=== PATIENT | female | born 1935 | race Caucasian/White ===

== ENCOUNTER 2019-11-20 22:12 | Inpatient (IN) | payer OTHER ==
[~2019-11-20] VITALS: Ht 162.6 cm; Wt 84.9 kg
[2019-11-20] MEDS ORDERED: D5W/SOD CHLO 0.9% 1,000 ML IV ONE (23:30)
[2019-11-20 23:54] LABS: Basophils # (auto) 0.1 10 ^3/uL (0-0.2); Basophils % (auto) 0.4 % (0.0-2.0); Eosinophils # (auto) 0.1 10 ^3/uL (0-0.8); Eosinophils % (auto) 0.9 % (0.0-7.0); Hematocrit 31.2 % (36.0-46.0); Hemoglobin 10.1 g/dL (12.2-16.2); Lymphocytes # (auto) 1.2 10 ^3/uL (0.4-5.4); Lymphocytes % (auto) 7.9 % (10.0-50.0); Mean Corpuscular Hemoglobin 29.8 pg (28.0-32.0); Mean Corpuscular Hgb Conc. 32.3 g/dL (32.0-36.0); Mean Corpuscular Volume 92.2 fL (80.0-100.0); Monocytes # (auto) 1.1 10 ^3/uL (0-1.3); Monocytes % (auto) 7.4 % (0.0-12.0); Neutrophils # (auto) 12.6 10 ^3/uL (1.6-8.6); Neutrophils % (auto) 83.4 % (37.0-80.0); Platelet Count (auto) 186 10^3/uL (140-450); Red Blood Cells 3.39 10^6/uL (4.0-5.20); Red Cell Distribution Width 14.9 % (11.8-14.3); White Blood Cell 15.1 10^3/uL (4.4-10.8)
[2019-11-21] VITALS (7 sets, daily range): BP systolic 96–153; BP diastolic 42–62
[2019-11-21] MEDS ORDERED: ONDANSETRON HCL 4 MG/2 ML VIAL IV ONE
[2019-11-21] MEDS ORDERED: MORPHINE SULFATE 4 MG/ML SYR/VIAL IV ONE
[2019-11-21 00:07] LABS: Partial Thromboplastin Time 23.8 sec (23.64-32.05)
[2019-11-21 00:14] LABS: Albumin 3.4 g/dL (3.4-5.0); Potassium 4.3 mmol/L (3.5-5.1)
[2019-11-21 00:17] LABS: BUN/Creatinine Ratio 30.8
[2019-11-21 00:20] LABS: Bilirubin, Total 0.2 mg/dL (0.2-1.0); Total Protein 6.6 g/dL (6.4-8.2)
[2019-11-21 00:41] LABS: Urine Bacteria FEW /hpf (None Seen); Urine Blood Negative /uL (Negative); Urine Hyaline Cast FEW /lpf (0 - 2); Urine Mucus FEW (None Seen); Urine Specific Gravity 1.013 (1.001-1.035)
[2019-11-21 00:42] LABS: Urine WBC 4 /hpf (0 - 5)
[2019-11-21] MEDS ORDERED: ACETAMINOPHEN 325 MG TAB PO PRN (00:45)
[2019-11-21] MEDS ORDERED: ONDANSETRON HCL 4 MG/2 ML VIAL IV PRN (00:45)
[2019-11-21] MEDS ORDERED: TEMAZEPAM 15 MG CAP PO PRN (00:45)
[2019-11-21] MEDS ORDERED: TIOTCAP IN (03:04)
[2019-11-21] MEDS ORDERED: HYDR25TA4 PO (03:04)
[2019-11-21] MEDS ORDERED: LOVA20TA4 PO (03:04)
[2019-11-21] MEDS ORDERED: AMLO5TAB15 PO (03:04)
[2019-11-21] MEDS ORDERED: LEVO88TA4 PO (03:04)
[2019-11-21] MEDS ORDERED: CLON1TAB10 PO (03:04)
[2019-11-21] MEDS ORDERED: RANI75SY PO (03:04)
[2019-11-21] MEDS ORDERED: ASPI325T4 PO (03:04)
[2019-11-21] MEDS: MORPHINE SULFATE 4 MG/ML SYR/VIAL IV PRN ×2 (04:17→20:03)
[2019-11-21] MEDS: LEVOTHYROXINE SODIUM 88 MCG TAB PO SCH (06:39)
[2019-11-21] MEDS: HCTZ 25 MG TAB PO SCH (10:00)
[2019-11-21] MEDS: amLODIPine BESYLATE 5 MG TAB PO SCH (10:00)
[2019-11-21] MEDS: FAMOTIDINE 20 MG TAB PO SCH (10:40)
[2019-11-21] MEDS: HYDROcodone-ACET 5/325MG TAB PO PRN (10:40)
[2019-11-21] MEDS: cefTRIAXone 1GM/50ML D5W 50 ML IV SCH (10:41)
[2019-11-22] MEDS: MORPHINE SULFATE 4 MG/ML SYR/VIAL IV PRN ×3 (04:43→18:35)
[2019-11-22 05:00] VITALS: BP 110/55
[2019-11-22 05:48] LABS: Basophils # (auto) 0 10 ^3/uL (0-0.2); Basophils % (auto) 0.5 % (0.0-2.0); Eosinophils # (auto) 0.1 10 ^3/uL (0-0.8); Hematocrit 23.7 % (36.0-46.0); Hemoglobin 7.9 g/dL (12.2-16.2); Lymphocytes # (auto) 0.8 10 ^3/uL (0.4-5.4); Lymphocytes % (auto) 11.5 % (10.0-50.0); Mean Corpuscular Hemoglobin 30.5 pg (28.0-32.0); Mean Corpuscular Hgb Conc. 33.4 g/dL (32.0-36.0); Mean Corpuscular Volume 91.3 fL (80.0-100.0); Monocytes % (auto) 14.2 % (0.0-12.0); Neutrophils % (auto) 71.8 % (37.0-80.0); Platelet Count (auto) 123 10^3/uL (140-450); Red Blood Cells 2.59 10^6/uL (4.0-5.20); Red Cell Distribution Width 14.9 % (11.8-14.3); White Blood Cell 6.9 10^3/uL (4.4-10.8)
[2019-11-22 06:00] LABS: BUN/Creatinine Ratio 32.7; Calcium 8.3 mg/dL (8.5-10.1)
[2019-11-22] MEDS: LEVOTHYROXINE SODIUM 88 MCG TAB PO SCH (06:11)
[2019-11-22 08:25] LABS: Basophils # (auto) 0 10 ^3/uL (0-0.2); Basophils % (auto) 0.4 % (0.0-2.0); Eosinophils # (auto) 0.1 10 ^3/uL (0-0.8); Eosinophils % (auto) 1.1 % (0.0-7.0); Hematocrit 24.7 % (36.0-46.0); Hemoglobin 8.2 g/dL (12.2-16.2); Lymphocytes # (auto) 0.8 10 ^3/uL (0.4-5.4); Mean Corpuscular Hemoglobin 30.6 pg (28.0-32.0); Mean Corpuscular Hgb Conc. 33.3 g/dL (32.0-36.0); Mean Corpuscular Volume 91.8 fL (80.0-100.0); Monocytes % (auto) 13.7 % (0.0-12.0); Neutrophils # (auto) 5.6 10 ^3/uL (1.6-8.6); Neutrophils % (auto) 73.8 % (37.0-80.0); Platelet Count (auto) 123 10^3/uL (140-450); Red Blood Cells 2.69 10^6/uL (4.0-5.20); Red Cell Distribution Width 14.9 % (11.8-14.3); White Blood Cell 7.5 10^3/uL (4.4-10.8)
[2019-11-22 09:00] VITALS: BP 135/71
[2019-11-22] MEDS: cefTRIAXone 1GM/50ML D5W 50 ML IV SCH (10:28)
[2019-11-22] MEDS: amLODIPine BESYLATE 5 MG TAB PO SCH (10:29)
[2019-11-22] MEDS: FAMOTIDINE 20 MG TAB PO SCH (10:29)
[2019-11-22] MEDS: HCTZ 25 MG TAB PO SCH (10:29)
[2019-11-22] MEDS ORDERED: ceFAZolin 1GM/50ML 50 ML IV ONE (10:45)
[2019-11-22] MEDS ORDERED: AMLO2.5T7 PO (11:01)
[2019-11-22 13:00] VITALS: BP 127/65
[2019-11-22] MEDS ORDERED: ENOXAPARIN SOD 40 MG/0.4 ML SYRINGE SC ONE (14:00)
[2019-11-22 17:00] VITALS: BP 144/65
[2019-11-22 22:00] VITALS: BP 120/68
[2019-11-23 05:00] VITALS: BP 124/59
[2019-11-23 05:57] LABS: Basophils # (auto) 0 10 ^3/uL (0-0.2); Basophils % (auto) 0.5 % (0.0-2.0); Hematocrit 22.3 % (36.0-46.0); Hemoglobin 7.6 g/dL (12.2-16.2); Mean Corpuscular Hgb Conc. 33.9 g/dL (32.0-36.0); Monocytes # (auto) 1.3 10 ^3/uL (0-1.3); Platelet Count (auto) 117 10^3/uL (140-450)
[2019-11-23 06:00] LABS: Eosinophils # (auto) 0.1 10 ^3/uL (0-0.8); Eosinophils % (auto) 0.8 % (0.0-7.0); Lymphocytes % (auto) 11.9 % (10.0-50.0); Mean Corpuscular Hemoglobin 30.9 pg (28.0-32.0); Mean Corpuscular Volume 91.2 fL (80.0-100.0); Monocytes % (auto) 15.1 % (0.0-12.0); Neutrophils # (auto) 6.1 10 ^3/uL (1.6-8.6); Neutrophils % (auto) 71.7 % (37.0-80.0); Red Blood Cells 2.45 10^6/uL (4.0-5.20); Red Cell Distribution Width 14.8 % (11.8-14.3); White Blood Cell 8.5 10^3/uL (4.4-10.8)
[2019-11-23] MEDS: LEVOTHYROXINE SODIUM 88 MCG TAB PO SCH (06:01)
[2019-11-23 06:11] LABS: BUN/Creatinine Ratio 27.5; Potassium 4.2 mmol/L (3.5-5.1)
[2019-11-23] MEDS: MORPHINE SULFATE 4 MG/ML SYR/VIAL IV PRN ×2 (06:40→17:08)
[2019-11-23 08:40] VITALS: BP 141/76
[2019-11-23 09:00] VITALS: BP 115/58
[2019-11-23] MEDS ORDERED: ceFAZolin 1GM/50ML 50 ML IV ONE (09:21)
[2019-11-23] MEDS ORDERED: MIDAZOLAM HCL 1MG/1ML-2 ML VIAL ONE ×2 (09:34→10:28)
[2019-11-23] MEDS ORDERED: fentaNYL CITRATE 100 MCG/2 ML VL ONE (09:34)
[2019-11-23] MEDS ORDERED: MEPERIDINE HCL (25 MG/ML) 1ML VIAL ONE (09:34)
[2019-11-23] MEDS ORDERED: TETRACAINE 1% INJ 2 ML VIAL IJ ONE (09:36)
[2019-11-23] MEDS ORDERED: ENOXAPARIN SOD 40 MG/0.4 ML SYRINGE SC SCH (10:00)
[2019-11-23] MEDS ORDERED: HCTZ 25 MG TAB PO SCH (10:00)
[2019-11-23] MEDS: amLODIPine BESYLATE 5 MG TAB PO SCH (10:00)
[2019-11-23] MEDS ORDERED: DexAMETHasone SOD PHOS 10MG/1ML VIAL INJ ONE (10:11)
[2019-11-23] MEDS ORDERED: PROPOFOL 10 MG/ML 20 ML IV ONE (10:11)
[2019-11-23] MEDS ORDERED: ONDANSETRON HCL 4 MG/2 ML VIAL IV PRN (11:30)
[2019-11-23] MEDS ORDERED: LABETALOL HCL 5 MG/ML 4ML SYRINGE IV PRN (11:30)
[2019-11-23] MEDS ORDERED: ePHEDrine SULFATE 50 MG/ML AMP IV PRN (11:30)
[2019-11-23] MEDS ORDERED: MORPHINE SULFATE 4 MG/ML SYR/VIAL IV PRN (11:30)
[2019-11-23] MEDS ORDERED: MIDAZOLAM HCL 1MG/1ML-2 ML VIAL IV PRN (11:30)
[2019-11-23] MEDS: cefTRIAXone 1GM/50ML D5W 50 ML IV SCH (13:16)
[2019-11-23] MEDS: FAMOTIDINE 20 MG TAB PO SCH (13:43)
[2019-11-23] MEDS ORDERED: ceFAZolin 1GM/50ML 50 ML IV SCH (14:00)
[2019-11-23 16:53] VITALS: BP 133/74
[2019-11-23] MEDS ORDERED: POLYETHYLENE GLYCOL 17 GM PWDR PO ONE (17:15)
[2019-11-23] MEDS: HYDROcodone-ACET 5/325MG TAB PO PRN (18:49)
[2019-11-23 20:58] VITALS: BP 114/67
[2019-11-24 04:37] VITALS: BP_SYST 102; BP_SYST 130; BP_DIAS 49; BP_DIAS 70
[2019-11-24] MEDS: MORPHINE SULFATE 4 MG/ML SYR/VIAL IV PRN (06:04)
[2019-11-24] MEDS: LEVOTHYROXINE SODIUM 88 MCG TAB PO SCH (06:05)
[2019-11-24 07:20] LABS: Basophils # (auto) 0 10 ^3/uL (0-0.2); Basophils % (auto) 0.1 % (0.0-2.0); Eosinophils # (auto) 0 10 ^3/uL (0-0.8); Hemoglobin 8.1 g/dL (12.2-16.2); Lymphocytes # (auto) 0.8 10 ^3/uL (0.4-5.4); Neutrophils # (auto) 10.7 10 ^3/uL (1.6-8.6); Neutrophils % (auto) 78.9 % (37.0-80.0)
[2019-11-24 07:23] LABS: Eosinophils % (auto) 0.1 % (0.0-7.0); Hematocrit 24.6 % (36.0-46.0); Lymphocytes % (auto) 5.8 % (10.0-50.0); Mean Corpuscular Volume 90.9 fL (80.0-100.0); Monocytes % (auto) 15.1 % (0.0-12.0); Nucleated Red Blood Cells % 0.1 %; Platelet Count (auto) 144 10^3/uL (140-450); Red Cell Distribution Width 14.7 % (11.8-14.3); White Blood Cell 13.5 10^3/uL (4.4-10.8)
[2019-11-24 07:33] LABS: Albumin 2.6 g/dL (3.4-5.0); Calcium 7.9 mg/dL (8.5-10.1); Magnesium 2.3 mg/dL (1.6-2.6); Potassium 4.1 mmol/L (3.5-5.1)
[2019-11-24 07:36] LABS: BUN/Creatinine Ratio 32.4; Bilirubin, Total 0.6 mg/dL (0.2-1.0); Total Protein 6.3 g/dL (6.4-8.2)
[2019-11-24 09:09] VITALS: BP 130/66
[2019-11-24] MEDS: FAMOTIDINE 20 MG TAB PO SCH (09:55)
[2019-11-24] MEDS: cefTRIAXone 1GM/50ML D5W 50 ML IV SCH (09:55)
[2019-11-24] MEDS: amLODIPine BESYLATE 5 MG TAB PO SCH (09:56)
[2019-11-24] MEDS: POLYETHYLENE GLYCOL 17 GM PWDR PO SCH (09:58)
[2019-11-24] MEDS: ENOXAPARIN SOD 30 MG/0.3 ML SYRINGE SC SCH (10:00)
[2019-11-24 13:00] VITALS: BP 124/70
[2019-11-24 16:57] VITALS: BP 105/75
[2019-11-24 21:24] VITALS: BP_SYST 113; BP_SYST 98; BP_DIAS 49; BP_DIAS 65
[2019-11-25 02:50] VITALS: BP 123/59
[2019-11-25 05:39] LABS: Basophils # (auto) 0 10 ^3/uL (0-0.2); Eosinophils # (auto) 0 10 ^3/uL (0-0.8); Eosinophils % (auto) 0.2 % (0.0-7.0); Hemoglobin 7.9 g/dL (12.2-16.2); Neutrophils # (auto) 8.4 10 ^3/uL (1.6-8.6); White Blood Cell 11.2 10^3/uL (4.4-10.8)
[2019-11-25 05:42] LABS: Basophils % (auto) 0.2 % (0.0-2.0); Hematocrit 23.6 % (36.0-46.0); Lymphocytes % (auto) 9.2 % (10.0-50.0); Mean Corpuscular Hemoglobin 30.5 pg (28.0-32.0); Mean Corpuscular Hgb Conc. 33.3 g/dL (32.0-36.0); Mean Corpuscular Volume 91.5 fL (80.0-100.0); Monocytes # (auto) 1.6 10 ^3/uL (0-1.3); Monocytes % (auto) 14.6 % (0.0-12.0); Neutrophils % (auto) 75.8 % (37.0-80.0); Platelet Count (auto) 186 10^3/uL (140-450); Red Blood Cells 2.57 10^6/uL (4.0-5.20); Red Cell Distribution Width 14.7 % (11.8-14.3)
[2019-11-25] MEDS: LEVOTHYROXINE SODIUM 88 MCG TAB PO SCH (06:50)
[2019-11-25 08:00] VITALS: BP 123/61
[2019-11-25 09:00] VITALS: BP 123/61
[2019-11-25] MEDS: POLYETHYLENE GLYCOL 17 GM PWDR PO SCH (10:00)
[2019-11-25] MEDS: cefTRIAXone 1GM/50ML D5W 50 ML IV SCH (10:28)
[2019-11-25] MEDS: ENOXAPARIN SOD 30 MG/0.3 ML SYRINGE SC SCH (10:29)
[2019-11-25] MEDS: FAMOTIDINE 20 MG TAB PO SCH (10:29)
[2019-11-25] MEDS: amLODIPine BESYLATE 5 MG TAB PO SCH (10:29)
[2019-11-25 13:00] VITALS: BP 113/71
[2019-11-25 17:00] VITALS: BP 139/67
[2019-11-25] MEDS ORDERED: FERROUS SULFATE 325 MG TAB PO ONE (17:30)
[2019-11-25 22:25] VITALS: BP 109/62
[2019-11-26] VITALS (10 sets, daily range): BP systolic 103–127; BP diastolic 49–68
[2019-11-26 05:56] LABS: Basophils # (auto) 0 10 ^3/uL (0-0.2); Basophils % (auto) 0.4 % (0.0-2.0); Eosinophils # (auto) 0.2 10 ^3/uL (0-0.8); Eosinophils % (auto) 2.2 % (0.0-7.0); Hematocrit 21.5 % (36.0-46.0); Hemoglobin 7.2 g/dL (12.2-16.2); Lymphocytes # (auto) 1.3 10 ^3/uL (0.4-5.4); Lymphocytes % (auto) 14.7 % (10.0-50.0); Mean Corpuscular Hemoglobin 30.4 pg (28.0-32.0); Mean Corpuscular Hgb Conc. 33.5 g/dL (32.0-36.0); Mean Corpuscular Volume 90.9 fL (80.0-100.0); Monocytes # (auto) 1.5 10 ^3/uL (0-1.3); Monocytes % (auto) 17.9 % (0.0-12.0); Neutrophils # (auto) 5.5 10 ^3/uL (1.6-8.6); Neutrophils % (auto) 64.8 % (37.0-80.0); Platelet Count (auto) 217 10^3/uL (140-450); Red Blood Cells 2.36 10^6/uL (4.0-5.20); Red Cell Distribution Width 14.7 % (11.8-14.3); White Blood Cell 8.6 10^3/uL (4.4-10.8)
[2019-11-26 06:15] LABS: Potassium 4.4 mmol/L (3.5-5.1)
[2019-11-26 06:20] LABS: Calcium 7.9 mg/dL (8.5-10.1)
[2019-11-26] MEDS: LEVOTHYROXINE SODIUM 88 MCG TAB PO SCH (06:59)
[2019-11-26] MEDS: POLYETHYLENE GLYCOL 17 GM PWDR PO SCH (08:57)
[2019-11-26] MEDS: cefTRIAXone 1GM/50ML D5W 50 ML IV SCH (08:57)
[2019-11-26] MEDS: amLODIPine BESYLATE 5 MG TAB PO SCH (08:57)
[2019-11-26] MEDS: FAMOTIDINE 20 MG TAB PO SCH (08:57)
[2019-11-26] MEDS: FERROUS SULFATE 325 MG TAB PO SCH ×2 (10:28→18:00)
[2019-11-26] MEDS: ENOXAPARIN SOD 30 MG/0.3 ML SYRINGE SC SCH (10:29)
[2019-11-26] MEDS: MORPHINE SULFATE 4 MG/ML SYR/VIAL IV PRN (11:09)
[2019-11-26 12:23] LABS: % Iron Saturation 20.2 % (15-50)
[2019-11-26 12:27] LABS: Ferritin 318.3 ng/mL (10-322)
[2019-11-26 12:28] LABS: Folate (Folic Acid) 16.75 ng/mL (5.38-24)
[2019-11-27] VITALS (9 sets, daily range): BP systolic 108–133; BP diastolic 49–72
[2019-11-27 06:19] LABS: Basophils # (auto) 0.1 10 ^3/uL (0-0.2); Basophils % (auto) 0.7 % (0.0-2.0); Eosinophils # (auto) 0.2 10 ^3/uL (0-0.8); Eosinophils % (auto) 3.2 % (0.0-7.0); Hematocrit 29.1 % (36.0-46.0); Hemoglobin 9.9 g/dL (12.2-16.2); Lymphocytes % (auto) 13.1 % (10.0-50.0); Mean Corpuscular Hemoglobin 29.7 pg (28.0-32.0); Mean Corpuscular Hgb Conc. 33.8 g/dL (32.0-36.0); Mean Corpuscular Volume 87.9 fL (80.0-100.0); Monocytes # (auto) 1.3 10 ^3/uL (0-1.3); Monocytes % (auto) 16.9 % (0.0-12.0); Neutrophils % (auto) 66.1 % (37.0-80.0); Platelet Count (auto) 277 10^3/uL (140-450); Red Blood Cells 3.31 10^6/uL (4.0-5.20); Red Cell Distribution Width 17.9 % (11.8-14.3); White Blood Cell 7.6 10^3/uL (4.4-10.8)
[2019-11-27 06:38] LABS: Potassium 5.1 mmol/L (3.5-5.1)
[2019-11-27] MEDS: LEVOTHYROXINE SODIUM 88 MCG TAB PO SCH (06:39)
[2019-11-27 06:56] LABS: Albumin 2.5 g/dL (3.4-5.0); BUN/Creatinine Ratio 43.4; Calcium 8.2 mg/dL (8.5-10.1); Magnesium 2.6 mg/dL (1.6-2.6)
[2019-11-27] MEDS: FAMOTIDINE 20 MG TAB PO SCH (09:00)
[2019-11-27] MEDS: FERROUS SULFATE 325 MG TAB PO SCH ×2 (09:01→18:08)
[2019-11-27] MEDS: amLODIPine BESYLATE 5 MG TAB PO SCH (09:01)
[2019-11-27] MEDS: cefTRIAXone 1GM/50ML D5W 50 ML IV SCH (09:01)
[2019-11-27] MEDS: POLYETHYLENE GLYCOL 17 GM PWDR PO SCH (10:00)
[2019-11-27] MEDS: ENOXAPARIN SOD 40 MG/0.4 ML SYRINGE SC SCH (10:00)
[2019-11-27] MEDS ORDERED: CYANOCOBALAMIN (B-12) 1000 MCG/1 ML VIAL SUBCUT ONE (11:00)
[2019-11-27] MEDS: MORPHINE SULF INJ 2 MG/ML SYRINGE 1ML IV PRN (14:05)
[2019-11-27] MEDS: clonazePAM 0.5 MG TAB PO SCH (22:31)
[2019-11-28 05:00] VITALS: BP 111/69
[2019-11-28] MEDS ORDERED: LEVOTHYROXINE SODIUM 100 MCG TAB PO SCH (07:00)
[2019-11-28] MEDS: FERROUS SULFATE 325 MG TAB PO SCH ×2 (08:29→18:00)
[2019-11-28] MEDS: amLODIPine BESYLATE 5 MG TAB PO SCH (08:29)
[2019-11-28] MEDS: clonazePAM 0.5 MG TAB PO SCH (08:29)
[2019-11-28] MEDS: FAMOTIDINE 20 MG TAB PO SCH (08:29)
[2019-11-28 09:00] VITALS: BP 117/81
[2019-11-28] MEDS: ENOXAPARIN SOD 40 MG/0.4 ML SYRINGE SC SCH (10:00)
[2019-11-28] MEDS: POLYETHYLENE GLYCOL 17 GM PWDR PO SCH (10:00)
[2019-11-28 13:00] VITALS: BP 124/67
[2019-11-28] MEDS: MORPHINE SULF INJ 2 MG/ML SYRINGE 1ML IV PRN (13:34)
[2019-11-28 16:11] VITALS: BP 124/67
[2019-11-28 16:47] VITALS: BP 105/67
== END 2019-11-28 21:00 | DRG 481 ==
LOC: EDBD 22:12 → ER 22:19 → WEST WING 22:20 → OVERFLOW 22:20 → UNDOADMIN 22:20
PROVIDERS: ADMIT Nurse Practitioner; ATTEND Internal Medicine
PROC: 30233N1 Transfusion of Nonautologous Red Blood Cells into Peripheral Vein, Percutaneous Approach (ICD-10-PCS; 2019-11-23)
PROC: 8E0Y3EZ Fluorescence Guided Procedure of Lower Extremity, Percutaneous Approach (ICD-10-PCS; 2019-11-23)
PROC: 0QS636Z Reposition Right Upper Femur with Intramedullary Internal Fixation Device, Percutaneous Approach (ICD-10-PCS; principal; 2019-11-23 09:45)
DX: S72.141A Displaced intertrochanteric fracture of right femur, initial encounter for closed fracture (principal); N39.0 Urinary tract infection, site not specified; J96.10 Chronic respiratory failure, unspecified whether with hypoxia or hypercapnia; E87.1 Hypo-osmolality and hyponatremia; J44.9 Chronic obstructive pulmonary disease, unspecified; G20 Parkinson's disease; I10 Essential (primary) hypertension; I67.1 Cerebral aneurysm, nonruptured; E03.9 Hypothyroidism, unspecified; G40.909 Epilepsy, unspecified, not intractable, without status epilepticus; W18.30XA Fall on same level, unspecified, initial encounter; D50.0 Iron deficiency anemia secondary to blood loss (chronic); Z99.81 Dependence on supplemental oxygen; Z90.49 Acquired absence of other specified parts of digestive tract; Z90.710 Acquired absence of both cervix and uterus; Z79.899 Other long term (current) drug therapy; Z79.82 Long term (current) use of aspirin; Y93.89 Activity, other specified; Y92.89 Other specified places as the place of occurrence of the external cause; Y99.8 Other external cause status; Z11.59 Encounter for screening for other viral diseases
CPT/HCPCS: 36415; 71045; 73502; 76000; 80048; 80053; 81001; 82270; 82607; 82728; 82746; 83540; 83550; 83615; 83735; 83880; 84132; 84439; 84443; 85025; 85045; 85610; 85730; 86850; 86900; 86901; 86920; 87086; 93005; 93306; 96361; 96374; 96375; 97110; 97116; 97163; 97530; C1713; C1769; G0378; J0690; J0696; J1100; J2250; J2405; J2704